=== PATIENT | male | born 1945 | race African-American/Black ===

== ENCOUNTER 2018-05-04 14:55 | Inpatient (IN) | payer MEDICAID, OTHER ==
[~2018-05-04] VITALS: Ht 172.7 cm; Wt 98.9 kg
[2018-05-04 17:37] LABS: CHLORIDE 101 mEq/L (98-107)
[2018-05-04 17:39] LABS: BASOPHILS % 0.1 % (0.0-2.0); HEMATOCRIT. 24.9 % (42.0-52.0); HEMOGLOBIN. 8.2 g/dL (14.0-18.0); LYMPHOCYTES % 8.7 % (20.0-50.0); MEAN CORPUSCULAR HEMOGLOBIN 29.7 pg (28.0-32.0); MEAN CORPUSCULAR VOLUME 90.2 fL (80.0-94.0); MEAN PLATELET VOLUME 8.2 fl (7.4-10.4); MONOCYTES % 5.8 % (2.0-8.0); NEUTROPHILS % 85.4 % (40.0-76.0); PLATELET 224 x1000/uL (130-400); RED BLOOD CELL COUNT 2.76 mill/uL (4.7-6.1); RED CELL DISTRIBUTION WIDTH 14.3 % (11.6-14.6)
[2018-05-04 17:40] LABS: D-DIMER < 0.19 mg/L FEU (<0.50); INR 1.3; PROTHROMBIN TIME 12.7 sec (9.1-11.1)
[2018-05-04] MEDS ORDERED: SODIUM CHLORIDE 0.9% 1,000 ML IV ONE ×3 (17:45→18:15)
[2018-05-04] MEDS ORDERED: AZITHROMYCIN 500 MG in DEXT 5% WATER 250 ML IV SCH (17:45)
[2018-05-04] MEDS ORDERED: CEFTRIAXONE 1 G PREMIX 50 ML IV ONE (17:45)
[2018-05-04] MEDS ORDERED: ASPI-1159 PO (22:52)
[2018-05-04] MEDS ORDERED: BENA20TA10 MT (22:52)
[2018-05-04] MEDS ORDERED: ATOR10TA69 MT (22:52)
[2018-05-04] MEDS ORDERED: AMLO10TA4 MT (22:52)
[2018-05-04] MEDS ORDERED: METF-414 MT (22:52)
[2018-05-04 23:00] VITALS: BP_SYST 100; BP_SYST 139; BP_DIAS 51; BP_DIAS 58
[2018-05-05] VITALS (21 sets, daily range): BP systolic 93–129; BP diastolic 49–73
[2018-05-05] MEDS ORDERED: DEXTROSE 50% WATER 50ML SYRINGE IV PRN (01:00)
[2018-05-05] MEDS ORDERED: HYDROCODONE/ACETAMINOPHEN 5/325MG TABLET PO PRN (01:00)
[2018-05-05] MEDS ORDERED: ACETAMINOPHEN 325MG TABLET PO PRN (01:00)
[2018-05-05] MEDS ORDERED: IPRATROPIUM/ALBUTEROL 0.5-3(2.5)MG/3ML NEB HHN PRN (01:00)
[2018-05-05] MEDS: SODIUM CHLORIDE 0.45% 1,000 ML IV SCH ×2 (02:22→21:57)
[2018-05-05 05:42] LABS: BASOPHILS % 0.3 % (0.0-2.0); EOSINOPHILS % 0.1 % (0.0-5.0); LYMPHOCYTES % 9.6 % (20.0-50.0); MEAN CORPUSCULAR HEMOGLOBIN 29.5 pg (28.0-32.0); MEAN CORPUSCULAR VOLUME 89.6 fL (80.0-94.0); MEAN PLATELET VOLUME 8.2 fl (7.4-10.4); MONOCYTES % 9.4 % (2.0-8.0); NEUTROPHILS % 80.6 % (40.0-76.0); PLATELET 185 x1000/uL (130-400); RED BLOOD CELL COUNT 2.05 mill/uL (4.7-6.1); RED CELL DISTRIBUTION WIDTH 14.6 % (11.6-14.6)
[2018-05-05 05:45] LABS: CHLORIDE 106 mEq/L (98-107)
[2018-05-05 05:56] LABS: LDL CHOLESTEROL 34 mg/dL (5-100)
[2018-05-05 05:58] LABS: HDL CHOLESTEROL 21 mg/dL (40-59); T4 FREE 1.08 ng/dL (0.76-1.46)
[2018-05-05 06:26] LABS: HEMATOCRIT. 18.4 % (42.0-52.0); HEMOGLOBIN. 6.1 g/dL (14.0-18.0)
[2018-05-05 10:10] LABS: MEAN CORPUSCULAR HEMOGLOBIN 30.1 pg (28.0-32.0); MEAN CORPUSCULAR VOLUME 89.3 fL (80.0-94.0); PLATELET 198 x1000/uL (130-400); RED BLOOD CELL COUNT 2.11 mill/uL (4.7-6.1); RED CELL DISTRIBUTION WIDTH 14.7 % (11.6-14.6)
[2018-05-05 11:03] LABS: HEMATOCRIT 18.9 % (42.0-52.0); HEMOGLOBIN 6.3 g/dL (14.0-18.0)
[2018-05-05] MEDS: ENOXAPARIN 30MG/0.3ML SYR SUBCUT SCH ×2 (11:26→21:00)
[2018-05-05] MEDS: BLOOD SUGAR DIAGNOSTIC STRIP TEST SCH ×3 (12:30→21:48)
[2018-05-05] MEDS ORDERED: PANTOPRAZOLE 40MG DR TABLET PO SCH (15:15)
[2018-05-05] MEDS: PANTOPRAZOLE SODIUM 40 MG/VIAL IV SCH (15:55)
[2018-05-05] MEDS: INSULIN LISPRO 100 UNITS/ML SUBCUT SCH ×2 (17:57→21:00)
[2018-05-05] MEDS ORDERED: LEVOFLOXACIN 500MG PREMIX 100 ML IV SCH ×2 (18:00→23:00)
[2018-05-05] MEDS ORDERED: FUROSEMIDE 40MG/4ML VIAL IVP SCH (19:45)
[2018-05-05] MEDS ORDERED: ATORVASTATIN CALCIUM 10MG TABLET PO SCH (21:00)
[2018-05-06] VITALS (15 sets, daily range): BP systolic 110–149; BP diastolic 60–81
[2018-05-06] MEDS: INSULIN LISPRO 100 UNITS/ML SUBCUT SCH ×2 (08:00→13:52)
[2018-05-06] MEDS: BLOOD SUGAR DIAGNOSTIC STRIP TEST SCH ×3 (08:13→17:52)
[2018-05-06] MEDS: ENOXAPARIN 30MG/0.3ML SYR SUBCUT SCH (09:00)
[2018-05-06 09:25] LABS: BASOPHILS % 0.4 % (0.0-2.0); EOSINOPHILS % 1.4 % (0.0-5.0); HEMATOCRIT. 22.8 % (42.0-52.0); LYMPHOCYTES % 14.2 % (20.0-50.0); MEAN CORPUSCULAR HEMOGLOBIN 31.2 pg (28.0-32.0); MEAN CORPUSCULAR VOLUME 89.2 fL (80.0-94.0); MEAN PLATELET VOLUME 7.9 fl (7.4-10.4); MONOCYTES % 9.9 % (2.0-8.0); NEUTROPHILS % 74.1 % (40.0-76.0); PLATELET 181 x1000/uL (130-400); RED BLOOD CELL COUNT 2.55 mill/uL (4.7-6.1); RED CELL DISTRIBUTION WIDTH 14.9 % (11.6-14.6)
[2018-05-06 09:26] LABS: CHLORIDE 105 mEq/L (98-107)
[2018-05-06] MEDS: PANTOPRAZOLE SODIUM 40 MG/VIAL IV SCH (09:35)
[2018-05-06] MEDS ORDERED: DIATR MEGLU/DIATRIZOATE SOLN 30ML PO SCH (09:45)
[2018-05-06] MEDS ORDERED: LORAZEPAM 2MG/ML CPJ IV SCH (13:15)
[2018-05-06] MEDS ORDERED: PANTOPRAZOLE 40MG DR TABLET PO SCH (14:30)
[2018-05-06 15:22] LABS: BASOPHILS % 0.2 % (0.0-2.0); EOSINOPHILS % 1.4 % (0.0-5.0); HEMATOCRIT. 23.1 % (42.0-52.0); LYMPHOCYTES % 15.6 % (20.0-50.0); MEAN CORPUSCULAR HEMOGLOBIN 31.1 pg (28.0-32.0); MEAN PLATELET VOLUME 7.8 fl (7.4-10.4); MONOCYTES % 9.3 % (2.0-8.0); NEUTROPHILS % 73.5 % (40.0-76.0); PLATELET 197 x1000/uL (130-400); RED BLOOD CELL COUNT 2.57 mill/uL (4.7-6.1); RED CELL DISTRIBUTION WIDTH 14.7 % (11.6-14.6)
[2018-05-06 17:16] LABS: TOTAL IRON BINDING CAPACITY 266 ug/dL (250-450)
[2018-05-06 17:35] LABS: FOLIC ACID (FOLATE) SERUM 8.2 ng/mL (>5.38)
[2018-05-06] MEDS ORDERED: SENNOSIDES/DOCUSATE SOD 8.6/50MG TABLET PO SCH (21:00)
[2018-05-07] MEDS ORDERED: LEVOFLOXACIN 500MG TABLET PO SCH (21:00)
== END 2018-05-06 17:10 | disposition home or self-care (01) | DRG 872 ==
LOC: ER 14:55 → EDBEDREQ 17:57 → EDBEDREQTM 17:57 → EDBEDREQSVC 18:05 → EDBEDREQTM 18:05 → EDBEDREQ 18:05 → EDBEDREQTM 18:27 → 5EST 18:27 → EDBEDREQ 18:27 → ENRESERV 20:11 → 5EST 05-05 15:00
PROVIDERS: ADMIT Internal Medicine; ATTEND Internal Medicine
PROC: 30233N1 Transfusion of Nonautologous Red Blood Cells into Peripheral Vein, Percutaneous Approach (ICD-10-PCS; principal; 2018-05-05)
DX: A41.9 Sepsis, unspecified organism (principal); K92.2 Gastrointestinal hemorrhage, unspecified; D64.9 Anemia, unspecified; E11.9 Type 2 diabetes mellitus without complications; E66.01 Morbid (severe) obesity due to excess calories; E78.00 Pure hypercholesterolemia, unspecified; E78.5 Hyperlipidemia, unspecified; I10 Essential (primary) hypertension; K59.00 Constipation, unspecified; R09.02 Hypoxemia; Z79.82 Long term (current) use of aspirin; Z68.33 Body mass index [BMI] 33.0-33.9, adult
CPT/HCPCS: 36415; 71045; 74176; 80048; 80061; 82533; 82607; 82728; 82746; 82962; 83036; 83540; 83550; 83605; 83880; 84439; 84443; 84481; 84484; 85027; 85379; 86850; 86900; 86920; 87804; 93005; 96361; 96365; 96368; 99291; C9113; J0456; J0696; J1650; J1815; J1956; J2060; J7030; J7050; J7060; P9016; Q9963

== ENCOUNTER 2018-06-08 19:59 | Observation (INO) | payer OTHER ==
[~2018-06-08] VITALS: Ht 167.6 cm; Wt 96.2 kg
[~2018-06-08 19:59] MED LIST: AMLO10TA4 MT; ASPI-1159 PO; ATOR10TA69 MT; BENA20TA10 MT; METF-414 MT
[2018-06-08] MEDS ORDERED: SODIUM CHLORIDE 0.9% 1,000 ML IV ONE (20:43)
[2018-06-08] MEDS ORDERED: LACTULOSE 20G/30ML UDC PO ONE (20:45)
[2018-06-08] MEDS ORDERED: MAGNESIUM HYDROXIDE 400MG/5ML 30ML UDC PO ONE (20:45)
[2018-06-08] MEDS ORDERED: MAGNESIUM CITRATE 300ML SOLUTION PO ONE (20:45)
[2018-06-08] MEDS ORDERED: MINERAL OIL 30ML BOTTLE PO ONE (20:45)
[2018-06-08 21:34] LABS: BASOPHILS % 0.2 % (0.0-2.0); EOSINOPHILS % 0.1 % (0.0-5.0); HEMOGLOBIN. 9.4 g/dL (14.0-18.0); LYMPHOCYTES % 7.9 % (20.0-50.0); MEAN CORPUSCULAR HEMOGLOBIN 25.6 pg (28.0-32.0); MEAN CORPUSCULAR VOLUME 82.1 fL (80.0-94.0); MEAN PLATELET VOLUME 6.8 fl (7.4-10.4); MONOCYTES % 6.8 % (2.0-8.0); PLATELET 501 x1000/uL (130-400); RED BLOOD CELL COUNT 3.66 mill/uL (4.7-6.1); RED CELL DISTRIBUTION WIDTH 18.2 % (11.6-14.6)
[2018-06-08 21:35] LABS: CHLORIDE 100 mEq/L (98-107)
[2018-06-09 08:00] VITALS: BP 124/64
[2018-06-09] MEDS ORDERED: ACETAMINOPHEN 650MG SUPP PR PRN (11:15)
[2018-06-09] MEDS ORDERED: GUAIFENESIN 200MG/10ML SUGAR FREE UDC PO PRN (11:15)
[2018-06-09] MEDS ORDERED: HYDROCODONE/ACETAMINOPHEN 5/325MG TABLET PO PRN (11:15)
[2018-06-09] MEDS ORDERED: MAGNESIUM/ALUMINUM HYDROXIDE/SIMETHICONE 30ML UDC PO PRN (11:15)
[2018-06-09] MEDS ORDERED: CLONIDINE 0.1MG TABLET PO PRN (11:15)
[2018-06-09] MEDS ORDERED: LORAZEPAM 0.5MG TABLET PO PRN (11:15)
[2018-06-09] MEDS ORDERED: DIPHENHYDRAMINE 50MG/ML VIAL IV PRN (11:15)
[2018-06-09] MEDS ORDERED: ACETAMINOPHEN 325MG TABLET PO PRN (11:15)
[2018-06-09] MEDS ORDERED: DOCUSATE SODIUM 100MG CAPSULE PO PRN (11:15)
[2018-06-09] MEDS ORDERED: ONDANSETRON HCL 4MG/2ML INJ IV PRN (11:15)
[2018-06-09] MEDS ORDERED: IPRATROPIUM/ALBUTEROL 0.5-3(2.5)MG/3ML NEB INH PRN (11:15)
[2018-06-09 11:22] VITALS: BP 115/58
[2018-06-09 12:00] VITALS: BP 110/62
[2018-06-09] MEDS ORDERED: CEFTRIAXONE 1 G PREMIX 50 ML IV SCH (12:30)
[2018-06-09 14:17] LABS: CLARITY URINE CLEAR (CLEAR); COLOR URINE YELLOW (YELLOW); KETONES URINE NEGATIVE (NEGATIVE); LEUKOCYTE ESTERASE URINE NEGATIVE (NEGATIVE); NITRITE URINE NEGATIVE (NEGATIVE); OCCULT BLOOD URINE NEGATIVE (NEGATIVE); PH URINE >=9.0 (4.5-8.0); PROTEIN URINE NEGATIVE (NEGATIVE); SPECIFIC GRAVITY URINE 1.009 (1.005-1.030); UROBILINOGEN URINE 0.2 E.U./dL (0.2-1.0)
[2018-06-09 14:42] LABS: *AMPHETAMINES SCREEN URINE NEGATIVE (NEGATIVE); *BARBITURATES SCREEN URINE NEGATIVE (NEGATIVE); *BENZODIAZEPINES SCREEN URINE NEGATIVE (NEGATIVE); *COCAINE SCREEN URINE NEGATIVE (NEGATIVE); METHADONE URINE SCREEN NEGATIVE (NEGATIVE); OPIATES URINE SCREEN NEGATIVE (NEGATIVE); PHENCYCLIDINE URINE SCREEN NEGATIVE (NEGATIVE)
[2018-06-09 14:43] LABS: CANNABINOID URINE SCREEN NEGATIVE (NEGATIVE)
[2018-06-09 16:00] VITALS: BP 103/58
[2018-06-09] MEDS ORDERED: DEXTROSE 50% WATER 50ML SYRINGE IV PRN (16:15)
[2018-06-09] MEDS ORDERED: BLOOD SUGAR DIAGNOSTIC STRIP TEST SCH (17:20)
[2018-06-09] MEDS ORDERED: INSULIN LISPRO 100 UNITS/ML SUBCUT SCH (17:50)
[2018-06-09 18:49] VITALS: BP 103/58
[2018-06-09 19:39] LABS: HEMATOCRIT 28.3 % (42.0-52.0); MEAN CORPUSCULAR HEMOGLOBIN 26.3 pg (28.0-32.0); MEAN CORPUSCULAR VOLUME 82.5 fL (80.0-94.0); PLATELET 458 x1000/uL (130-400); RED BLOOD CELL COUNT 3.43 mill/uL (4.7-6.1); RED CELL DISTRIBUTION WIDTH 18.5 % (11.6-14.6)
[2018-06-09 19:43] LABS: CHLORIDE 104 mEq/L (98-107)
[2018-06-09 19:51] LABS: TOTAL IRON BINDING CAPACITY 379 ug/dL (250-450)
== END 2018-06-09 19:25 | disposition home or self-care (01) ==
LOC: ER 19:59 → 6EST 22:42 → EDBEDREQ 22:44 → ENRESERV 06-09 08:01
PROVIDERS: ADMIT Internal Medicine; ATTEND Internal Medicine
DX: K59.09 Other constipation (principal); K62.89 Other specified diseases of anus and rectum; I10 Essential (primary) hypertension; E78.5 Hyperlipidemia, unspecified; E78.00 Pure hypercholesterolemia, unspecified; E11.9 Type 2 diabetes mellitus without complications; D72.829 Elevated white blood cell count, unspecified; D64.9 Anemia, unspecified
CPT/HCPCS: 36415; 71045; 74176; 80048; 80053; 80305; 81003; 82270; 82962; 83540; 83550; 85025; 85027; 87040; 96365; 97162; 99284; G0378; J0696; J7030; J7040

== ENCOUNTER 2021-10-31 15:27 | Emergency (ER) | payer MEDICARE, OTHER ==
[~2021-10-31] VITALS: Ht 172.7 cm; Wt 91.0 kg
[~2021-10-31 15:27] MED LIST changes: -ASPI-1159 PO; +ASPI-1497 PO
[2021-10-31] MEDS ORDERED: ACETAMINOPHEN 325MG TABLET PO ONE (16:15)
[2021-10-31] MEDS ORDERED: NA PHOS,M-B/NA PHOS,DI-BA ENEMA 118ML PR NR (18:30)
[2021-10-31] MEDS ORDERED: ACETAMINOPHEN 325MG TABLET PO NR (20:15)
[2021-10-31 20:16] LABS: BASOPHILS % 0.1 % (0.0-2.0); EOSINOPHILS % 1.4 % (0.0-5.0); HEMATOCRIT. 44.3 % (42.0-52.0); HEMOGLOBIN. 14.8 g/dL (14.0-18.0); LYMPHOCYTES % 15.7 % (20.0-50.0); MEAN CORPUSCULAR HEMOGLOBIN 30.7 pg (28.0-32.0); MEAN CORPUSCULAR VOLUME 91.9 fL (80.0-94.0); MONOCYTES % 11.5 % (2.0-8.0); NEUTROPHILS % 71.3 % (40.0-76.0); PLATELET 174 x1000/uL (130-400); RED BLOOD CELL COUNT 4.81 mill/uL (4.7-6.1); RED CELL DISTRIBUTION WIDTH 14.8 % (11.6-14.6)
[2021-10-31 20:26] LABS: CHLORIDE 105 mEq/L (98-107)
[2021-10-31] MEDS ORDERED: [UNRECOGNIZED DRUG - CODE] MT (20:39)
[2021-10-31] MEDS ORDERED: MAGN400C MT (20:39)
[2021-10-31] MEDS ORDERED: NA P133E4 RC (20:39)
[2021-10-31 20:45] VITALS: BP 119/69
== END 2021-10-31 21:22 | disposition home or self-care (01) ==
LOC: ER 15:27
DX: K59.00 Constipation, unspecified (principal); R10.9 Unspecified abdominal pain; E78.00 Pure hypercholesterolemia, unspecified; I10 Essential (primary) hypertension; Z79.899 Other long term (current) drug therapy
CPT/HCPCS: 36415; 74021; 74176; 80053; 85025; 99284

== ENCOUNTER 2023-06-13 11:51 | Emergency (ER) | payer MEDICARE ==
[~2023-06-13] VITALS: Ht 170.2 cm; Wt 62.0 kg
[~2023-06-13 11:51] MED LIST changes: +BENA-8 MT; -BENA20TA10 MT; +DOCU-150 MT; +MAGN400C MT; +NA P133E4 RC; +POLY17PO3 MT; +[UNRECOGNIZED DRUG - CODE] MT
[2023-06-13 11:57] VITALS: O2SAT 98
[2023-06-13 13:14] LABS: ALANINE AMINOTRANSFERASE 8 IU/L (10-49); ALBUMIN 4.3 g/dL (3.2-4.8); ASPARTATE AMINOTRANSFERASE 22 IU/L (<34); BILIRUBIN TOTAL 0.8 mg/dL (0.1-1.0); CALCIUM 9.8 mg/dL (8.7-10.4); CARBON DIOXIDE 34 mEq/L (21-32); CHLORIDE 101 mEq/L (98-107); GLUCOSE 100 mg/dL (70-105); POTASSIUM 4.3 mEq/L (3.5-5.1); PROTEIN TOTAL 7.4 g/dL (6.0-8.3); SODIUM 137 mEq/L (136-145); UREA NITROGEN BLOOD 9 mg/dL (9-23)
[2023-06-13 13:24] LABS: BASOPHILS % 0.4 % (0.0-2.0); EOSINOPHILS % 0.8 % (0.0-5.0); HEMATOCRIT. 44.6 % (42.0-52.0); LYMPHOCYTES % 10.2 % (20.0-50.0); MEAN CORPUSCULAR HEMOGLOBIN 31.6 pg (28.0-32.0); MEAN CORPUSCULAR HGB CONC 33.5 g/dL (31.0-37.0); MEAN CORPUSCULAR VOLUME 94.3 fL (80.0-94.0); MEAN PLATELET VOLUME 8.5 fl (7.4-10.4); MONOCYTES % 13.4 % (2.0-8.0); NEUTROPHILS % 75.2 % (40.0-76.0); PLATELET 189 x1000/uL (130-400); RED BLOOD CELL COUNT 4.73 mill/uL (4.7-6.1); RED CELL DISTRIBUTION WIDTH 13.5 % (11.6-14.6); WHITE BLOOD COUNT 4.9 x1000/uL (4.5-11.0)
[2023-06-13] MEDS ORDERED: NA PHOS,M-B/NA PHOS,DI-BA ENEMA 118ML PR ONE (14:45)
[2023-06-13] MEDS ORDERED: NA P230E RC (16:39)
[2023-06-13] MEDS ORDERED: DOCU-138 MT (16:39)
[2023-06-13 16:54] VITALS: BP 128/71; PULSE 111; RESP 18; TEMP 99
== END 2023-06-13 17:02 | disposition home or self-care (01) ==
LOC: ER 11:51
DX: K59.00 Constipation, unspecified (principal); R05.9 Cough, unspecified; I10 Essential (primary) hypertension; E78.00 Pure hypercholesterolemia, unspecified
CPT/HCPCS: 36415; 71045; 80053; 85025; 99283

== ENCOUNTER 2025-03-23 00:04 | Emergency (ER) | payer MEDICARE ==
[~2025-03-23] VITALS: Ht 175.3 cm; Wt 81.1 kg
[~2025-03-23 00:04] MED LIST changes: +AMLO-905 MT; -AMLO10TA4 MT; +DOCU-138 MT; -DOCU-150 MT; +DOCU-422 MT; +NA P230E RC
[2025-03-23 00:15] VITALS: O2SAT 98
[2025-03-23 00:56] LABS: BASOPHILS % 0.7 % (0.0-2.0); EOSINOPHILS % 3.9 % (0.0-5.0); HEMATOCRIT. 45.5 % (42.0-52.0); HEMOGLOBIN. 14.7 g/dL (14.0-18.0); LYMPHOCYTES % 29.0 % (20.0-50.0); MEAN PLATELET VOLUME 8.3 fl (7.4-10.4); MONOCYTES % 12.8 % (2.0-8.0); NEUTROPHILS % 53.6 % (40.0-76.0); PLATELET 192 x1000/uL (130-400); RED BLOOD CELL COUNT 4.79 mill/uL (4.7-6.1); RED CELL DISTRIBUTION WIDTH 13.9 % (11.6-14.6)
[2025-03-23 01:08] LABS: CREATININE 0.9 mg/dL (0.6-1.3); UREA NITROGEN BLOOD 7 mg/dL (9-23)
[2025-03-23 01:10] LABS: ASPARTATE AMINOTRANSFERASE 18 IU/L (<34); BILIRUBIN DIRECT 0.2 mg/dL (<=3.0); BILIRUBIN TOTAL 0.6 mg/dL (0.1-1.0); PROTEIN TOTAL 7.3 g/dL (6.0-8.3)
[2025-03-23] MEDS: DOCUSATE SODIUM SUGAR FREE 100MG/10ML UDC PO NR (01:11)
[2025-03-23] MEDS: MAGNESIUM HYDROXIDE 400MG/5ML 30ML UDC PO ONE (01:11)
[2025-03-23] MEDS: MAGNESIUM HYDROXIDE 400MG/5ML 30ML UDC PO NR (01:30)
[2025-03-23] MEDS: DOCUSATE SODIUM 250MG CAPSULE PO ONE (01:31)
[2025-03-23] MEDS ORDERED: POLY17PO3 MT (02:19)
[2025-03-23] MEDS ORDERED: DOCU-422 MT (02:19)
[2025-03-23] MEDS ORDERED: NA P133E RC (02:19)
[2025-03-23 02:37] VITALS: BP 125/73; PULSE 68; RESP 18; TEMP 36.9; O2SAT 98
== END 2025-03-23 02:38 | disposition home or self-care (01) ==
LOC: ER 00:12
DX: K59.00 Constipation, unspecified (principal); E78.00 Pure hypercholesterolemia, unspecified; I10 Essential (primary) hypertension; Z79.82 Long term (current) use of aspirin; Z79.84 Long term (current) use of oral hypoglycemic drugs; Z79.899 Other long term (current) drug therapy
CPT/HCPCS: 36415; 74176; 80048; 80076; 85025; 93005; 99284